=== PATIENT | female | born 1955 | race Caucasian/White ===

== ENCOUNTER 2018-02-04 08:41 | Day surgery (SDC) | payer OTHER ==
[2018-02-04] MEDS ORDERED: SOD CHLORIDE 0.9% 1,000 ML IV (09:00)
[2018-02-04 10:22] LABS: ADD MAN DIFF? NO
[2018-02-04 10:45] LABS: ALANINE AMINOTRANSFERASE 42 IU/L (13-69); ALBUMIN 4.6 g/dl (3.3-4.9); ALBUMIN/GLOBULIN RATIO 1.12; ALKALINE PHOSPHATASE 96 IU/L (42-121); ANION GAP 18 (8-16); ASPARTATE AMINO TRANSFERASE 35 IU/L (15-46); BILIRUBIN,INDIRECT 0.4 mg/dl (0-1.1); BILIRUBIN,TOTAL 0.4 mg/dl (0.2-1.3); CARBON DIOXIDE 24 mmol/L (21-31); CHLORIDE 107 mmol/L (97-110); GLUCOSE 107 mg/dl (70-220); TOTAL PROTEIN 8.7 g/dl (6.1-8.1)
[2018-02-04 10:48] LABS: BLOOD UREA NITROGEN 16 mg/dl (7-20); CALCIUM 9.5 mg/dl (8.4-10.2); CREATININE 0.61 mg/dl (0.44-1.00); POTASSIUM 4.4 mmol/L (3.5-5.1); SODIUM 145 mmol/L (135-144)
[2018-02-04 10:58] LABS: INR 0.98; PARTIAL THROMBOPLASTIN TIME 27.5 Sec (25.0-35.0); PROTIME 13.1 Sec (11.9-14.9)
[2018-02-04] MEDS ORDERED: FENTAnyl 50 MCG/ML VIAL IV ×4 (11:30→13:00)
[2018-02-04] MEDS ORDERED: HYDROmorphONE 0.5 MG/0.5 ML SYG IV ×4 (11:30→13:00)
[2018-02-04] MEDS ORDERED: ONDANSETRON 4 MG INJ IV ×2 (11:30→13:00)
[2018-02-04] MEDS ORDERED: MEPERIDINE 25 MG INJ IV ×2 (11:30→13:00)
[2018-02-04] MEDS ORDERED: MIDAZOLAM 1 MG/ML 2 ML INJ (11:36)
[2018-02-04] MEDS ORDERED: PROPOFOL 20 ML (11:36)
[2018-02-04] MEDS ORDERED: LIDOCAINE 1% (MDV) 20 ML INJ (11:36)
[2018-02-04] MEDS ORDERED: FENTAnyl 50 MCG/ML VIAL (11:36)
[2018-02-04] MEDS ORDERED: CEFAZOLIN 1 GM INJ (11:45)
[2018-02-04] MEDS: CEFAZOLIN 1 GM/50 ML (PMX) 50 ML IVPB (11:45)
[2018-02-04] MEDS ORDERED: DEXAMETHASONE 4 MG/ML 1 ML INJ (11:45)
[2018-02-04] MEDS ORDERED: ONDANSETRON 4 MG INJ (11:45)
[2018-02-04] MEDS ORDERED: ACETAMINOPHEN 1000MG/100ML IV 100 ML (11:45)
[2018-02-04] MEDS ORDERED: EPHEDrine SULFATE 50 MG/5 ML SYG (11:59)
[2018-02-04] MEDS ORDERED: HYDROmorphONE 2 MG/ML SYG (12:05)
[2018-02-04] MEDS ORDERED: GLYCOPYRROLATE 0.4 MG INJ (12:19)
[2018-02-04] MEDS ORDERED: HYDROCODONE/APAP (7.5/325) TAB PO (12:30)
[2018-02-04] MEDS ORDERED: HYDROmorphONE (0.2 MG/ML) 10ML SYG IV (12:51)
[2018-02-04] MEDS: HYDROmorphONE (0.2 MG/ML) 10ML SYG IV ×2 (13:00→13:17)
[2018-02-04 13:51] LABS: WHITE BLOOD COUNT 4.1 10^3/ul (4.8-10.8)
[2018-02-04 13:51] LABS: BASOPHILS % 0.7 % (0.0-2.0); EOSINOPHILS # 0.1 10^3/ul (0.0-0.5); EOSINOPHILS % 2.7 % (0.0-7.0); HEMOGLOBIN 13.3 g/dl (12.0-16.0); LYMPHOCYTES # 1.2 10^3/ul (0.8-2.9); MEAN CORPUSCULAR HEMOGLOBIN 30.2 pg (29.0-33.0); MEAN CORPUSCULAR VOLUME 86.2 fl (82.0-101.0); MEAN PLATELET VOLUME 10.9 fl (7.4-10.4); MONOCYTE # 0.5 10^3/ul (0.3-0.9); NEUTROPHIL # 2.3 10^3/ul (1.6-7.5); NEUTROPHILS % 54.4 % (39.0-77.0); PLATELET COUNT 241 10^3/UL (140-415); RED BLOOD COUNT 4.41 10^6/ul (4.20-5.40); RED CELL DISTRIBUTION WIDTH 13.3 % (11.5-14.5)
[2018-02-04 13:55] LABS: HOLD TRANSMISSIONS 1
== END 2018-02-04 16:15 | disposition home or self-care (01) ==
LOC: SDS 08:41
DX: N60.22 Fibroadenosis of left breast (principal); I10 Essential (primary) hypertension
CPT/HCPCS: 19301; 71045; 80053; 85025; 85610; 85730; 88307; 93005

== ENCOUNTER 2018-06-14 05:54 | Day surgery (SDC) | payer OTHER ==
[2018-06-14] MEDS ORDERED: FENTAnyl 50 MCG/ML VIAL (10:27)
[2018-06-14] MEDS ORDERED: MIDAZOLAM 1 MG/ML 2 ML INJ (10:27)
== END 2018-06-14 09:44 | disposition home or self-care (01) ==
LOC: GIL 05:54
DX: K29.70 Gastritis, unspecified, without bleeding (principal); K44.9 Diaphragmatic hernia without obstruction or gangrene; K21.9 Gastro-esophageal reflux disease without esophagitis; I10 Essential (primary) hypertension
CPT/HCPCS: 43239; 88305; 88312

== ENCOUNTER 2018-07-19 08:39 | Day surgery (SDC) | payer OTHER ==
[2018-07-19] MEDS ORDERED: MIDAZOLAM 1 MG/ML 2 ML INJ ×2 (11:35)
[2018-07-19] MEDS ORDERED: FENTAnyl 50 MCG/ML VIAL (11:36)
== END 2018-07-19 14:59 | disposition home or self-care (01) ==
LOC: GIL 08:39
DX: Z12.11 Encounter for screening for malignant neoplasm of colon (principal); D12.5 Benign neoplasm of sigmoid colon; K64.8 Other hemorrhoids; I10 Essential (primary) hypertension
CPT/HCPCS: 45380; 88305